=== PATIENT | male | born 1945 | race American Indian/Alaskan Native ===

== ENCOUNTER 2018-03-12 06:13 | Observation (INO) | payer MEDICARE ==
[2018-02-27 12:23] LABS: Basophils % (Auto) 0.4 % (0.0-1.8); Eosinophils # (Auto) 0.2 K/mm3 (0.0-0.4); Hematocrit 40.3 % (35.5-45.6); Hemoglobin 13.8 gm/dl (11.8-15.2); Lymphocytes # (Auto) 1.4 K/mm3 (1.2-5.4); Lymphocytes % (Auto) 15.5 % (13.4-35.0); Mean Corpuscular HGB Conc 34 % (32-34); Mean Corpuscular Hemoglobin 32 pg (28-32); Mean Corpuscular Volume 93 fl (84-94); Monocytes # (Auto) 0.8 K/mm3 (0.0-0.8); Monocytes % (Auto) 8.9 % (0.0-7.3); Platelet Count 135 K/mm3 (140-440); Red Blood Count 4.31 M/mm3 (3.65-5.03); Red Cell Distribution Width 13.8 % (13.2-15.2)
[2018-02-27 12:34] LABS: INR 0.9 (0.87-1.13)
[2018-02-27 12:35] LABS: Partial Thromboplastin Time 36.3 Sec. (24.2-36.6)
[2018-02-27 12:43] LABS: Alanine Aminotransferase 11 units/L (7-56); Albumin 3.9 g/dL (3.9-5); BUN/Creatinine Ratio 20; Blood Urea Nitrogen 20 mg/dL (9-20); Calcium 8.9 mg/dL (8.4-10.2); Hemolysis Index 23
[~2018-03-12 06:13] MED LIST: ANCEF/STERILE WATER 2 GM/20 ML IV NR
[2018-03-12] MEDS ORDERED: NACL BACTERIOSTATIC INFILTRATI ONE (06:35)
--- NOTE | 2018-03-12 07:00 | Anesthesia Consultation ---
Anesthesia Consult and Med Hx Date of service: 03/12/18 (poor historian) - Airway Anesthetic Teeth Evaluation: Edentulous ROM Head & Neck: Adequate Mental/Hyoid Distance: Adequate Mallampati Class: Class III Intubation Access Assessment: Probably Good - Pulmonary Exam CTA: Yes - Cardiac Exam Cardiac Exam: RRR - Pre-Operative Health Status ASA Pre-Surgery Classification: ASA2 Proposed Anesthetic Plan: General - Pulmonary Hx Smoking: Yes (STOPPED X 2 YRS) Hx Sleep Apnea: No (SHABANA PRE SCREEN LOW RISK) - Cardiovascular System Hx Hypertension: No Hx Coronary Artery Disease: No - Central Nervous System Hx Neuromuscular Disorder: No - Gastrointestinal Hx Gastroesophageal Reflux Disease: No - Endocrine Hx Renal Disease: No Hx Insulin Dependent Diabetes: No Hx Non-Insulin Dependent Diabetes: No
[2018-03-12] MEDS ORDERED: PERCOCET 5/325 PO PRN (07:01)
[2018-03-12] MEDS ORDERED: DILAUDID IV PRN (07:01)
--- NOTE | 2018-03-12 07:01 | Anesthesia Day of Surgery ---
Anesthesia Day of Surgery - Day of Surgery Patient Examined: Yes Patient H&P Reviewed: Yes Patient is NPO: Yes
[2018-03-12] MEDS ORDERED: SUBLIMAZE ONE ×2 (07:25→12:25)
[2018-03-12] MEDS ORDERED: DIPRIVAN 10 MG/ML IV ONE ×2 (07:25→12:25)
[2018-03-12] MEDS ORDERED: VERSED ONE (07:25)
[2018-03-12] MEDS ORDERED: DILAUDID ONE (07:25)
[2018-03-12] MEDS ORDERED: ZEMURON IV ONE (07:26)
[2018-03-12] MEDS ORDERED: XYLOCAINE MPF 2% ONE ×2 (07:27→12:28)
[2018-03-12] MEDS ORDERED: ROBINUL ONE ×2 (07:28→11:11)
[2018-03-12] MEDS ORDERED: DECADRON ONE (07:28)
[2018-03-12] MEDS ORDERED: ZOFRAN ONE (07:29)
[2018-03-12] MEDS ORDERED: NEO SYNEPHRINE/NS Syringe(OR USE) IV ONE (07:30)
[2018-03-12] MEDS ORDERED: BLOXIVERZ ONE (07:33)
[2018-03-12] MEDS ORDERED: PEPCID IV NR (08:00)
[2018-03-12] MEDS ORDERED: NACL 0.9% 1000 ML 1,000 ML IV SCH ×2 (08:00→12:00)
[2018-03-12] MEDS ORDERED: VERSED IV NR (08:00)
[2018-03-12] MEDS ORDERED: ACD-A 500 ML IV ONE (08:01)
[2018-03-12] MEDS ORDERED: CALCIUM CHLORIDE IV ONE ×2 (08:01→11:37)
[2018-03-12] MEDS ORDERED: MARCAINE-EPI 0.5%-1:200,000 INFILTRATI ONE (08:01)
[2018-03-12] MEDS ORDERED: METHYLENE BLUE ONE (08:01)
[2018-03-12] MEDS ORDERED: THROMBIN (BOVINE) TP ONE ×2 (08:02→11:37)
[2018-03-12] MEDS ORDERED: LACTATED RINGERS 1,000 ML ONE (08:21)
--- NOTE | 2018-03-12 09:16 | Anesthesia Day of Surgery ---
Anesthesia Day of Surgery - Day of Surgery Patient Examined: Yes Patient H&P Reviewed: Yes Patient is NPO: Yes
[2018-03-12] MEDS ORDERED: NACL 0.9% IR ONE ×2 (09:44)
[2018-03-12] MEDS ORDERED: AMBIEN PO PRN (11:30)
[2018-03-12] MEDS ORDERED: NARCAN 0.4 MG/1 ML IV PRN (11:30)
[2018-03-12] MEDS ORDERED: MORPHINE IV PRN (11:30)
[2018-03-12] MEDS ORDERED: NORCO 5/325 PO PRN (11:30)
[2018-03-12] MEDS ORDERED: ZOFRAN IV PRN (11:30)
--- NOTE | 2018-03-12 11:30 | Short Stay Summary ---
Short Stay Documentation Date of service: 03/12/18 - History H&P: obtained from office - Allergies and Medications Current Medications: Allergies No Known Allergies Allergy (Verified 02/23/18 16:23) Home Medications Medication Instructions Recorded Confirmed Last Taken Type Tamsulosin [Flomax] 0.4 mg PO QDAY 02/23/18 02/23/18 Unknown History Active Medications Cefazolin Sodium (Ancef/Sterile Water 2 Gm/20 Ml) 2 gm IV PREOP NR Stop: 03/12/18 16:00 Famotidine (Pepcid) 20 mg IV PREOP NR Stop: 03/12/18 23:59 Last Admin: 03/12/18 07:41 Dose: 20 mg Hydromorphone HCl (Dilaudid) 0.5 mg IV Q10MIN PRN PRN Reason: Pain , Severe (7-10) Sodium Chloride (Nacl 0.9% 1000 Ml) 1,000 mls @ 42 mls/hr IV DIRECT SHAKEEL Sodium Chloride (Nacl 0.9% 1000 Ml) 1,000 mls @ 100 mls/hr IV DIRECT SHAKEEL Stop: 03/12/18 12:00 Last Admin: 03/12/18 07:00 Dose: 100 mls/hr Midazolam HCl (Versed) 2 mg IV PREOP NR Stop: 03/12/18 23:59 Last Admin: 03/12/18 07:35 Dose: 2 mg Ondansetron HCl (Zofran) 4 mg IV ONCE PRN PRN Reason: Nausea And Vomiting Oxycodone/Acetaminophen (Percocet 5/325) 1 tab PO ONCE PRN PRN Reason: Pain, Moderate (4-6) - Brief post op/procedure progress note Date of procedure: 03/05/18 Pre-op diagnosis: prostate cancer Post-op diagnosis: same Procedure: robotic prostatectomy Anesthesia: GETA Surgeon: AIDAN RANGEL Tractor Trailer Driver: TAMMY QUIROZ Estimated blood loss: other (200cc) Pathology: list Specimen disposition: to lab (prostate) Condition: stable - Hospital course Hospital course: rabia ayers, post op info on chart - Disposition Condition at discharge: Stable Disposition: DC-01 TO HOME OR SELFCARE Short Stay Discharge Plan Follow up with: CHARO ROTH MD [Primary Care Provider] - 7 Days
[2018-03-12] MEDS ORDERED: ACD-A IV ONE (11:37)
[2018-03-12] MEDS ORDERED: ANCEF/NS 1 GM/50 ML 1 GM/50 ML BAG IV SCH (12:00)
--- NOTE | 2018-03-12 12:25 | Operative Report ---
PREOPERATIVE DIAGNOSIS: Prostate cancer, Mj 7, PSA 7. POSTOPERATIVE DIAGNOSIS: Prostate cancer, Mj 7, PSA 7. PROCEDURE: Robotic-assisted laparoscopic prostatectomy. SURGEON: Silvestre Servin M.D. JOB# [id number] [facility] void [email or web address]
--- NOTE | 2018-03-12 12:38 | Operative Report ---
PREOPERATIVE DIAGNOSES: Prostate cancer, Mj 7, prostate specific antigen 7. POSTOPERATIVE DIAGNOSES: Prostate cancer, [place] 7, prostate specific antigen 7. PROCEDURE: Robotic-assisted laparoscopic prostatectomy. SURGEON: Silvestre Servin MD GREY ROLL WORKER: Mickey Reyes ANESTHESIA: General. ESTIMATED BLOOD LOSS: 200 mL. FLUIDS: Crystalloid. COMPLICATIONS: No complications. INDICATIONS: This patient is a 72-year-old gentleman initially seen by Dr. Zaman in our group for an elevated PSA of 7. He underwent transrectal ultrasound and biopsy. His prostate is found to have Mj 3+4 and a total of 3 cores bilaterally. The patient voiced interest in robotic prostatectomy and was referred to me for evaluation. We discussed options. Written information was given to the patient and his family. They agreed to proceed with surgical intervention. DESCRIPTION OF PROCEDURE: The patient was taken to the operative suite, placed in a supine position. After adequate general anesthesia, he was placed in a modified dorsal lithotomy position, prepped and draped in a sterile fashion. Cooper catheter was placed on the operative field. A 1 cm supraumbilical incision was made. Towel clips were placed. Drop test was negative. Opening insufflation was 4 cm of water. Insufflation to 15 cm of water was performed without difficulty. Abdominal wall was marked starting at the pubic symphysis, 15 cm cephalad to pubic symphysis was marked in the midline. The patient had a narrow pelvis and therefore 8 cm lateral to the midline and additional 8 cm lateral was marked. Under direct vision, 0-degree lens was placed at the supraumbilical incision. The other ports were placed under direct vision as well. The 8-mm robotic ports as well as a 10-mm right helper port and a 5-mm right helper port. The patient was then placed in exaggerated Trendelenburg position. The robotic cart was docked between the legs. Attention was then focused on intraabdominally. The second arch was scored exposing the seminal vesicles and vas deferens. Dissection to the apex of the prostate was performed without difficulty. Seminal vesicles were dissected out. Vas deferens was transected bilaterally. Copious irrigation was performed. Adequate hemostasis achieved. Attention was then taken to the anterior abdominal wall, lateral to the lateral umbilical ligament was scored, and then across the midline bladder flap was dropped, pubic rami could be appreciated. Endopelvic fascia was opened bilaterally exposing the prostate. It was dissected back to the bladder neck. Dorsal vein complex was controlled with a 65-mm vascular stapler. Manipulation of the Cooper identified the bladder neck, which was scored exposing the anterior bladder neck. This was taken down. Indigo carmine was administered intravenously. The ureteral orifices could be appreciated bilaterally. Posterior dissection was performed exposing the seminal vesicles were then pulled up into the midline. The lateral pedicles were then controlled with for 65-mm vascular stapler. [place] of the prostate was dissected free. Prostate was then placed in the EndoCatch bag and retracted laterally. Copious irrigation was performed. Adequate hemostasis achieved. Again, no injury to the rectum could be appreciated. The patient had a TURP defect and a large bladder neck, so bladder reconstruction was performed using a 2-0 Vicryl at the 5 o'clock and 7 o'clock positions tapering down to accommodate an 18-[place] Cooper catheter. Louann stitch was placed at the 12 o'clock position of the bladder neck. V-Loc double arm stitch was placed at the 6 o'clock position of the bladder neck corresponding aspect of the urethra running stitch was placed bilaterally. A new 18-[place] Cooper catheter was placed into the bladder. Anastomotic stitch was cinched down. Cooper catheter was inflated, 15 cm of water irrigation, no leak, no clots. Platelet-rich plasma membrane was laid across the anastomosis. Platelet-rich plasma fluid was injected in the pelvic area as well as platelet poor plasma. I checked again, normal hemostasis could be appreciated. A Timoteo-Ibarra drain 10-mm was brought out through the left-sided port. The robotic cart was undocked. The supraumbilical incision was then extended to allow removal of the prostate. Rectus fascia was closed with #1 Vicryl in a [id number] fashion. Subcutaneous tissue and the skin was closed with 4-0 Monocryl in interrupted fashion. The Timoteo-Ibarra drain was secured with 2-0 silk and interrupted fashion. Cooper catheter site port was folded over and tied with 0 silk in an interrupted fashion. The patient tolerated the procedure well. He was extubated and taken to recovery room. He will be observed overnight, go home on Cipro and Vicryl and [place]. Levi Reyes was present throughout the procedure and facilitated the dissection at the bedside. JOB# [id number] [facility]/NTS
--- NOTE | 2018-03-12 13:48 | Post Anesthesia Evaluation ---
- Post Anesthesia Evaluation Patient Participated: Yes Airway Patent: Yes Stable Respiratory Function: Yes Nausea/Vomiting: No Temp > 96.8F: Yes Pain Manageable: Yes Adequeate Hydration: Yes Anesthesia Complications: No
[2018-03-12] MEDS ORDERED: ISOPTO TEARS 0.5% OD PRN (13:53)
[2018-03-12] MEDS: ceFAZolin 1 GM in NACL 0.9% 20 ML IV SCH (16:19)
[2018-03-12] MEDS: NACL 0.9% 1000 ML 1,000 ML IV SCH (21:36)
[2018-03-12] MEDS: ZOFRAN IV PRN ×2 (21:37→21:40)
[2018-03-13] MEDS: ceFAZolin 1 GM in NACL 0.9% 20 ML IV SCH ×2 (03:43→04:18)
[2018-03-13] MEDS: NACL 0.9% 1000 ML 1,000 ML IV SCH (05:17)
[2018-03-13 06:55] LABS: Basophils # (Auto) 0.1 K/mm3 (0.0-0.1); Basophils % (Auto) 0.3 % (0.0-1.8); Hemoglobin 13.4 gm/dl (11.8-15.2); Lymphocytes # (Auto) 1.9 K/mm3 (1.2-5.4); Lymphocytes % (Auto) 9.9 % (13.4-35.0); Mean Corpuscular HGB Conc 34 % (32-34); Mean Corpuscular Hemoglobin 32 pg (28-32); Mean Corpuscular Volume 94 fl (84-94); Monocytes # (Auto) 1.4 K/mm3 (0.0-0.8); Monocytes % (Auto) 7.7 % (0.0-7.3); Platelet Count 114 K/mm3 (140-440); Red Blood Count 4.24 M/mm3 (3.65-5.03); Red Cell Distribution Width 13.8 % (13.2-15.2)
[2018-03-13 07:19] LABS: BUN/Creatinine Ratio 12; Blood Urea Nitrogen 12 mg/dL (9-20); Calcium 8.3 mg/dL (8.4-10.2); Hemolysis Index 2
[2018-03-13] MEDS ORDERED: LEVAQUIN 500MG/100ML 500 MG/100 ML BAG IV SCH (12:00)
[2018-03-13 16:39] VITALS: BP 123/70
== END 2018-03-13 19:03 | disposition home or self-care (01) ==
LOC: OR 06:13 → 3B-SURG 11:30
PROVIDERS: ADMIT Urology; ATTEND Urology
DX: C61 Malignant neoplasm of prostate (principal)
CPT/HCPCS: 36415; 55821; 80048; 80053; 82962; 85025; 85610; 85730; 86850; 86900; 86901; 88309; 96365; 96375; 96376; A4217; G0378; J0690; J1100; J1170; J1956; J2250; J2270; J2370; J2405; J2704; J2710; J3010; J7030; J7120; Q9968

== ENCOUNTER 2018-04-04 10:09 | Day surgery (SDC) | payer MEDICARE ==
[~2018-04-04 10:09] MED LIST changes: +ANCEF/STERILE WATER 2 GM/20 ML 2 GM/20 ML SYRINGE IV NR; -ANCEF/STERILE WATER 2 GM/20 ML IV NR; +NACL 0.9% 1000 ML 1,000 ML IV SCH
[2018-04-04 11:53] LABS: Basophils % (Auto) 0.6 % (0.0-1.8); Eosinophils # (Auto) 0.1 K/mm3 (0.0-0.4); Eosinophils % (Auto) 1.7 % (0.0-4.3); Hematocrit 38.5 % (35.5-45.6); Hemoglobin 13.3 gm/dl (11.8-15.2); Lymphocytes # (Auto) 1.2 K/mm3 (1.2-5.4); Mean Corpuscular HGB Conc 35 % (32-34); Mean Corpuscular Hemoglobin 33 pg (28-32); Mean Corpuscular Volume 95 fl (84-94); Monocytes # (Auto) 0.5 K/mm3 (0.0-0.8); Monocytes % (Auto) 7.5 % (0.0-7.3); Platelet Count 154 K/mm3 (140-440); Red Blood Count 4.07 M/mm3 (3.65-5.03); Red Cell Distribution Width 13.7 % (13.2-15.2)
[2018-04-04 12:01] LABS: INR 0.95 (0.87-1.13); Partial Thromboplastin Time 35.5 Sec. (24.2-36.6)
[2018-04-04 12:03] LABS: BUN/Creatinine Ratio 18; Blood Urea Nitrogen 20 mg/dL (9-20); Calcium 9.1 mg/dL (8.4-10.2); Hemolysis Index 10
[2018-04-04] MEDS ORDERED: HEPARIN 10,000 UNITS/10 ML ONE (12:12)
[2018-04-04] MEDS ORDERED: VERSED ONE (12:12)
[2018-04-04] MEDS ORDERED: ANCEF/STERILE WATER 2 GM/20 ML 2 GM/20 ML SYRINGE IV ONE (12:12)
[2018-04-04] MEDS ORDERED: HEPARIN/NS 5000 UNIT/500ML(CATH LAB) 1,000 ML IR ONE (12:12)
[2018-04-04] MEDS: SUBLIMAZE ONE ×2 (12:24→12:40)
[2018-04-04] MEDS: XYLOCAINE 2% INFILTRATI ONE ×2 (12:25→12:27)
--- NOTE | 2018-04-04 13:23 | Short Stay Summary ---
Short Stay Documentation Date of service: 04/04/18 - History Principal diagnosis: Right RIKI aneurysm H&P: obtained from office - Allergies and Medications Current Medications: Allergies No Known Allergies Allergy (Verified 02/23/18 16:23) Home Medications Medication Instructions Recorded Confirmed Last Taken Type Tamsulosin [Flomax] 0.4 mg PO QDAY 02/23/18 04/04/18 04/03/18 History Active Medications Cefazolin Sodium (Ancef/Sterile Water 2 Gm/20 Ml) 2 gm in 20 mls @ 80 mls/hr IV PREOP NR; Protocol Stop: 04/04/18 23:00 Last Admin: 04/04/18 12:24 Dose: 20 mls Sodium Chloride (Nacl 0.9% 1000 Ml) 1,000 mls @ 42 mls/hr IV DIRECT SHAKEEL Last Admin: 04/04/18 10:59 Dose: 42 mls/hr - Brief post op/procedure progress note Date of procedure: 04/04/18 Pre-op diagnosis: Right RIKI aneurysm Post-op diagnosis: same Procedure: Stentgraft palcement Anesthesia: local Surgeon: KOLTON IRIZARRY Estimated blood loss: none Pathology: none Condition: stable - Disposition Condition at discharge: Good Disposition: DC-01 TO HOME OR SELFCARE Short Stay Discharge Plan Activity: advance as tolerated Weight Bearing Status: Weight Bear as Tolerated Diet: regular Wound: keep clean and dry, per your surgeon's advice Follow up with: CHARO ROTH MD [Primary Care Provider] - 7 Days
--- NOTE | 2018-04-04 13:27 | Operative Report ---
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 The patient was brought to the angiographic suite and placed in supine position on the examination table. Initial ultrasound evaluation of his right groin demonstrated a patent right common femoral artery. Initial ultrasound evaluation of his left groin demonstrated a patent left common femoral artery. Bilateral groins were prepped and draped in the usual sterile fashion. 1% lidocaine was used for anesthesia. Under ultrasound guidance, the right common femoral artery was cannulated with a 7 cm 21-gauge needle. A 0.018 guidewire was advanced centrally. The needle was removed and a micro-sheath placed. The 0.018 guidewire was exchanged for a 0.035 guidewire and the micro-sheath exchanged for a 5 [place] vascular sheath. Access to the left common femoral artery was obtained in a similar fashion and the second 5 [place] sheath placed. A 5 [place] Omni flush catheter was advanced over the 0.035 guidewire through the left sheath to the distal abdominal aorta. Imaging was performed and multiple obliquities which demonstrates the aneurysm involving the common iliac artery just distal to its origin. There is approximately 80% stenosis through the aneurysm with good proximal and distal [place] zones. Of the 5 [place] sheath in the right groin was upsized to an 8 [place] sheath. Following geography for anatomic localization, a 9 mm x 40 mm or VBX stent was advanced across the lesion and deployed. The stent was seated to 12 skinny. Post stent deployment imaging demonstrated reduction of the stenosis to 0%. At this point, bilateral she's were removed and hemostasis achieved in the groin using Angio-Seal arterial closure device. A sterile dressing was then applied. The patient tolerated the procedure well. There were no immediate post procedure competitions. Conscious sedation was performed under the guidance of radiologic nursing. Continuous cardiopulmonary monitoring was utilized. Impression: 1) Aortogram demonstrating 80% stenosis involving a right common iliac artery aneurysm with mural thrombus. 2) Placement of stentgraft across this lesion with residual 0% stenosis
[2018-04-04 16:00] VITALS: BP 112/80
== END 2018-04-04 16:00 | disposition home or self-care (01) ==
LOC: CATHLABREC 10:09
PROVIDERS: ATTEND Radiology Diagnostic Radiology
DX: I72.3 Aneurysm of iliac artery (principal); Z79.01 Long term (current) use of anticoagulants
CPT/HCPCS: 36415; 37221; 75625; 76937; 80048; 85025; 85610; 85730; 99156; 99157; C1760; C1887; J0690; J1644; J2250; J3010; J7030; Q9967